=== PATIENT | male | born 1955 | race American Indian/Alaskan Native ===

== ENCOUNTER 2017-10-17 23:17 | Emergency (ER) | payer MEDICAID, OTHER ==
[2017-10-17 23:29] VITALS: BMI 35.0
[2017-10-17 23:31] VITALS: TEMP 98.5; O2SAT 98
--- NOTE | 2017-10-17 23:50 | ED PDOC ---
HPI: SOB/CHF/COPD Time Seen by Provider: 10/17/17 23:49 Chief Complaint (Nursing): Shortness Of Breath Chief Complaint (Provider): COUGH History Per: Patient (62 Y/O MALE H/O PE/COPD HERE FOR EVALUATION OF COUGH THAT STARTED TODAY. DENIES ANY FEVERS/CHILLS. NOTES HE HAS HAD ONGOING LOWER EXTREMITY SWELLING. ) Past Medical History Reviewed: Historical Data, Nursing Documentation, Vital Signs Vital Signs: Last Vital Signs Temp 98.5 F 10/17/17 23:29 Pulse 115 H 10/17/17 23:29 Resp 16 10/18/17 00:31 BP 118/83 10/17/17 23:29 Pulse Ox 98 10/18/17 02:16 - Family History Family History: States: No Known Family Hx - Home Medications Home Medications: Ambulatory Orders Medication Instructions Recorded Promethazine/Codeine 5 ml PO Q12 PRN #50 ml 10/18/17 [Codeine/Promethazine 10 MG/5 Ml-6.25 MG/5 Ml] - Allergies Allergies/Adverse Reactions: Allergies Allergy/AdvReac Type Severity Reaction Status Date / Time No Known Allergies Allergy Verified 10/17/17 23:29 Review of Systems ROS Statement: Except As Marked, All Systems Reviewed And Found Negative Physical Exam - Reviewed Nursing Documentation Reviewed: Yes Vital Signs Reviewed: Yes - Physical Exam Appears: Positive for: Well, Non-toxic, No Acute Distress Head Exam: Positive for: ATRAUMATIC, NORMAL INSPECTION, NORMOCEPHALIC Skin: Positive for: Normal Color, Warm, DRY Eye Exam: Positive for: EOMI, Normal appearance, PERRL ENT: Positive for: Normal ENT Inspection Neck: Positive for: Normal, Painless ROM Cardiovascular/Chest: Positive for: Regular Rate, Rhythm Respiratory: Positive for: CNT, Normal Breath Sounds Gastrointestinal/Abdominal: Positive for: Normal Exam, Soft Back: Positive for: Normal Inspection Extremity: Positive for: Normal ROM Neurologic/Psych: Positive for: Alert, Oriented - Laboratory Results Result Diagrams: 10/18/17 00:30 10/18/17 00:30 - ECG ECG Rhythm: Positive for: Sinus Tachycardia (107 bpm no ectopy acute changes) O2 Sat by Pulse Oximetry: 98 - Progress ED Course And Treament: cxr: no acute disease pulse rate repeated 99 Patient noted sleeping comfortably. Coughing improved during stay. Disposition - Clinical Impression Clinical Impression: Cough - Patient ED Disposition Is Patient to be Admitted: No - Disposition Disposition: Routine/Home Disposition Time: 02:15 Condition: FAIR Prescriptions: Promethazine/Codeine [Codeine/Promethazine 10 MG/5 Ml-6.25 MG/5 Ml] 5 ml PO Q12 PRN #50 ml PRN Reason: Cough Instructions: Cough in Adults
[2017-10-18 00:43] VITALS: RESP 16
[2017-10-18 00:52] LABS: EOS # 0.1 K/uL (0.0-0.7); EOS % 2.1 % (0.0-4.0); HEMOGLOBIN 14.8 g/dL (12.0-18.0); LYMPH % 43.4 % (20.0-40.0); MEAN CELL VOLUME 73.7 fl (80.0-94.0); MEAN CORPUSCULAR HEMOGLOBIN 25.2 pg (27.0-31.0); MEAN CORPUSCULAR HGB CONC 34.2 g/dL (33.0-37.0); MONO # 0.7 K/uL (0.0-0.8); MONO % 14.9 % (0.0-10.0); NEUT # 1.7 K/uL (1.8-7.0); NEUT % 38.6 % (50.0-75.0); NRBC % 0.2 % (0.0-0.0); RBC 5.87 Mil/uL (4.40-5.90); RED CELL DISTRIBUTION WIDTH 16.6 % (11.5-14.5); WHITE BLOOD COUNT 4.5 K/uL (4.8-10.8)
[2017-10-18 01:02] LABS: INR 2.4; PROTHROMBIN TIME 26.8 Seconds (9.8-13.1)
[2017-10-18 01:05] LABS: PARTIAL THROMBOPLASTIN TIME 44.9 Seconds (25.6-37.1)
[2017-10-18 01:07] LABS: ALB/GLOB RATIO 1.1 (1.0-2.1); ALBUMIN 4.4 g/dL (3.5-5.0); ALT/SGPT 28 U/L (21-72); AST/SGOT 38 U/L (17-59); BLOOD UREA NITROGEN 23 mg/dl (9-20); CALCIUM 9.3 mg/dL (8.4-10.2); GFR NON-AFRICAN AMERICAN 56
[2017-10-18 01:21] LABS: B-TYPE NATRIURETIC PEPTIDE 32.5 pg/ml (0-900)
[2017-10-18 02:40] VITALS: BP 107/72; PULSE 99
--- NOTE | 2017-10-18 08:18 | CARD ---
APPROVED REPORT Date of service: 10/17/2017 <Conclusion> Sinus tachycardia Otherwise normal ECG
--- NOTE | 2017-10-18 16:19 | RAD ---
Date of service: 10/17/2017 HISTORY: COUGH COMPARISON: No prior. TECHNIQUE: Chest PA and lateral FINDINGS: LUNGS: The interstitial markings are slightly increased and coarsened with a few scattered peribronchial cuffing changes. Rule out sequela of reactive/inflammatory airway disease or viral illness. Mild bibasilar atelectasis. PLEURA: No significant pleural effusion identified. No pneumothorax apparent. CARDIOVASCULAR: Normal. OSSEOUS STRUCTURES: No significant abnormalities. VISUALIZED UPPER ABDOMEN: Normal. OTHER FINDINGS: None. IMPRESSION: The interstitial markings are slightly increased and coarsened with a few scattered peribronchial cuffing changes. Rule out sequela of reactive/inflammatory airway disease or viral illness. Mild bibasilar atelectasis.
== END 2017-10-18 02:44 | disposition home or self-care (01) ==
LOC: H.ER 23:17
DX: R00.0 Tachycardia, unspecified (principal); R05 Cough; J44.9 Chronic obstructive pulmonary disease, unspecified; Z86.711 Personal history of pulmonary embolism

== ENCOUNTER 2018-05-04 20:11 | Emergency (ER) | payer MEDICAID, OTHER ==
[2018-05-04 20:12] VITALS: BMI 35.0
[2018-05-04] MEDS ORDERED: Albuterol-Ipratrop 3 mg / 0.5 (3 ml) UD INH STA (20:36)
[2018-05-04] MEDS ORDERED: Promethazine/Cod 6.25mg-10mg/5ml Syr UD PO STA (21:02)
[2018-05-04] MEDS ORDERED: Magnesium Sulfate 1 gm in D5W 1 GM/100 ML BAG IVPB STA (21:02)
[2018-05-04] MEDS ORDERED: Albuterol-Ipratrop 3 mg / 0.5 (3 ml) UD ONE ×2 (21:29→21:30)
[2018-05-04] MEDS ORDERED: Promethazine/Cod 6.25mg-10mg/5ml Syr UD ONE (21:29)
[2018-05-04] MEDS ORDERED: Magnesium Sulfate 2 gm/50 ml 2 GM/50 ML BAG IV STA (21:30)
[2018-05-04] MEDS ORDERED: Magnesium Sulfate 2 gm/50 ml 2 GM/50 ML BAG ONE (21:31)
[2018-05-04 21:51] LABS: BASO # 0.1 K/uL (0.0-0.2); BASO % 1.1 % (0.0-2.0); EOS # 0.2 K/uL (0.0-0.7); EOS % 2.4 % (0.0-4.0); LYMPH # 2.2 K/uL (1.0-4.3); LYMPH % 30.3 % (20.0-40.0); MEAN CELL VOLUME 74.9 fl (80.0-94.0); MEAN CORPUSCULAR HEMOGLOBIN 25.4 pg (27.0-31.0); MEAN CORPUSCULAR HGB CONC 33.8 g/dL (33.0-37.0); MEAN PLATELET VOLUME 8.9 fl (7.2-11.7); MONO # 0.5 K/uL (0.0-0.8); MONO % 7.1 % (0.0-10.0); NEUT # 4.3 K/uL (1.8-7.0); NEUT % 59.1 % (50.0-75.0); NRBC % 0.2 % (0.0-0.0); RBC 5.92 Mil/uL (4.40-5.90); WHITE BLOOD COUNT 7.3 K/uL (4.8-10.8)
--- NOTE | 2018-05-04 21:54 | ED PDOC ---
HPI: SOB/CHF/COPD Time Seen by Provider: 05/04/18 20:31 Chief Complaint (Nursing): Shortness Of Breath Chief Complaint (Provider): Shortness Of Breath History Per: Patient History/Exam Limitations: no limitations Onset/Duration Of Symptoms: Days (x7) Current Symptoms Are (Timing): Still Present Additional Complaint(s): 63 y/o male with a PMHx of HTN, CHF, COPD, dyslipidemia and Pulmonary Embolism presents to the ED for evaluation of shortness of breath for the past week. Patient reports shortness of breath is associated with a persistent dry cough with occasional clear phlegm. Patient notes he has not taken his Lasix for the last two weeks as he doesn't like to take it due to the need to urinate. Otherwise, patient denies fever, vomiting and diarrhea. Patient states his legs are swollen but less than what he is accustomed to. PMD: Dillon Leyva Past Medical History Reviewed: Historical Data, Nursing Documentation, Vital Signs Vital Signs: Last Vital Signs Temp 97.7 F 05/04/18 20:14 Pulse 98 H 05/04/18 20:14 Resp 18 05/04/18 20:14 BP 126/86 05/04/18 20:14 Pulse Ox 99 05/04/18 20:14 - Medical History PMH: CHF, COPD, HTN, Pulmonary Embolism Other PMH: DYSLIPIDEMIA - Surgical History Surgical History: No Surg Hx - Family History Family History: States: Unknown Family Hx - Social History Current smoker - smoking cessation education provided: No Alcohol: None Drugs: Denies - Home Medications Home Medications: Ambulatory Orders Medication Instructions Recorded Promethazine/Codeine 5 ml PO Q12 PRN #50 ml 10/18/17 [Codeine/Promethazine 10 MG/5 Ml-6.25 MG/5 Ml] Benzonatate [Tessalon Perle] 100 mg PO TID PRN #15 capsule 05/04/18 Methylprednisolone [Medrol Dosepak] 4 mg PO ASDIR #1 pkg 05/04/18 Umeclidinium Avery [Incruse 1 puff INH DAILY 05/04/18 Ellipta] levoFLOXacin [Levaquin] 500 mg PO DAILY #10 tab 05/04/18 - Allergies Allergies/Adverse Reactions: Allergies Allergy/AdvReac Type Severity Reaction Status Date / Time No Known Allergies Allergy Verified 10/17/17 23:29 Review of Systems ROS Statement: Except As Marked, All Systems Reviewed And Found Negative Constitutional: Negative for: Fever Respiratory: Positive for: Cough, Shortness of Breath Gastrointestinal: Negative for: Vomiting, Diarrhea Physical Exam - Reviewed Nursing Documentation Reviewed: Yes Vital Signs Reviewed: Yes - Physical Exam Appears: Positive for: No Acute Distress Head Exam: Positive for: ATRAUMATIC, NORMOCEPHALIC Skin: Positive for: Normal Color, Warm, Dry Eye Exam: Positive for: Normal appearance, EOMI, PERRL Neck: Positive for: Normal, Painless ROM, Supple Cardiovascular/Chest: Positive for: Regular Rate, Rhythm. Negative for: Murmur Respiratory: Positive for: Decreased Breath Sounds (Decreased air entry bilaterally) Gastrointestinal/Abdominal: Positive for: Normal Exam, Soft. Negative for: Tenderness Back: Positive for: Normal Inspection. Negative for: L CVA Tenderness, R CVA Tenderness, Vertebral Tenderness Extremity: Positive for: Normal ROM. Negative for: Deformity Neurological/Psych: Positive for: Awake, Alert, Oriented - Laboratory Results Result Diagrams: 05/04/18 21:32 05/04/18 21:32 - ECG O2 Sat by Pulse Oximetry: 99 (RA) Pulse Ox Interpretation: Normal Medical Decision Making Medical Decision Making: Time: 2036 Impression: 63 y/o male with COPD vs. CHF exacerbation Plan: -- BNP -- CMP -- Troponin I -- CBC with Differential -- PTT -- Prothrombin Time -- Duoneb 3mg/0.5mg 3 ml (UD) 0 ml INH -- Heplock Insertion -- Peak Flow Pre/Post Tx Time: 2129 Plan: -- SOLU-Medrol 125 mg IVP -- Promethazine/Codeine 10 ml PO -- Magnesium Sulfate 2 gm in 50 ml IV -- CXR Portable 2349: Labs reviewed and revealed no clinically significant abnormalities CXR: presents no active disease, as read by Dr. Ivan Clinical Impression: COPD exacerbation, bronchitis Upon provider reevaluation patient is feeling better, is medically stable, and requires no further treatment in the ED at this time. Patient will be discharged. Counseling was provided and all questions were answered regarding diagnosis. There is agreement to discharge plan. Return if symptoms persist or worsen. Scribe Attestation: Documented by Joseph Cisneros, acting as a scribe Gonzalo Ivan MD. Provider Scribe Attestation: All medical record entries made by the Scribe were at my direction and personally dictated by me. I have reviewed the chart and agree that the record accurately reflects my personal performance of the history, physical exam, medical decision making, and the department course for this patient. I have also personally directed, reviewed, and agree with the discharge instructions and disposition. Disposition - Clinical Impression Clinical Impression: COPD (chronic obstructive pulmonary disease), Bronchitis - Patient ED Disposition Is Patient to be Admitted: No - Disposition Disposition: Routine/Home Disposition Time: 23:50 Condition: STABLE Prescriptions: Benzonatate [Tessalon Perle] 100 mg PO TID PRN #15 capsule PRN Reason: Cough levoFLOXacin [Levaquin] 500 mg PO DAILY #10 tab Methylprednisolone [Medrol Dosepak] 4 mg PO ASDIR #1 pkg Instructions: Acute Bronchitis, Exacerbation of COPD (DC) Forms: [employer] (Welsh)
[2018-05-04 21:59] LABS: INR 1.1; PROTHROMBIN TIME 12.5 Seconds (9.8-13.1)
[2018-05-04 22:02] LABS: PARTIAL THROMBOPLASTIN TIME 31.5 Seconds (25.6-37.1)
[2018-05-04 22:10] LABS: ALB/GLOB RATIO 1.1 (1.0-2.1); ALBUMIN 4.3 g/dL (3.5-5.0); BLOOD UREA NITROGEN 11 mg/dl (9-20); GFR NON-AFRICAN AMERICAN > 60
[2018-05-04 22:15] LABS: ALT/SGPT 24 U/L (21-72); AST/SGOT 37 U/L (17-59)
[2018-05-04 22:21] LABS: B-TYPE NATRIURETIC PEPTIDE 69.9 pg/ml (0-900)
[2018-05-04] MEDS ORDERED: levoFLOXacin 500 MG TAB PO STA (23:49)
[2018-05-05 00:29] VITALS: BP 120/74; PULSE 100; RESP 18; TEMP 99
[2018-05-05 00:52] VITALS: O2SAT 99
--- NOTE | 2018-05-05 09:34 | RAD ---
Date of service: 05/04/2018 HISTORY: chest pain COMPARISON: Chest radiographs 10/17/2017. FINDINGS: LUNGS: No active pulmonary disease. PLEURA: No significant pleural effusion identified, no pneumothorax apparent. CARDIOVASCULAR: No aortic atherosclerotic calcification present. Cardiac silhouette appears prominent with at least some technical magnification present. No pulmonary vascular congestion. OSSEOUS STRUCTURES: No significant abnormalities. VISUALIZED UPPER ABDOMEN: Normal. OTHER FINDINGS: None. IMPRESSION: No acute infiltrate bilaterally or pleural effusion. No pulmonary vascular congestion.
== END 2018-05-05 00:51 | disposition home or self-care (01) ==
LOC: H.ER 20:11
DX: J44.1 Chronic obstructive pulmonary disease with (acute) exacerbation (principal); Z86.711 Personal history of pulmonary embolism; I11.0 Hypertensive heart disease with heart failure; E78.5 Hyperlipidemia, unspecified
CPT/HCPCS: 71045; 80053; 83880; 84484; 85025; 85610; 85730; 96365; 96375; 99283; J2930